=== PATIENT | male | born 1950 | race Caucasian/White ===

== ENCOUNTER 2019-05-02 13:19 | Outpatient (REF) | payer MEDICARE, BC, SELFPAY ==
[2019-05-02 22:03] LABS: Anion Gap 12.1 mmol/L (3-11); BUN 26 mg/dL (7-18); CO2 21.9 mmol/L (21.0-32.0); CREATININE 0.93 mg/dL (0.70-1.30); Calcium 9.3 mg/dL (8.5-10.1); Chloride 108 mmol/L (98-107); Glucose 88 mg/dL (70-100); Potassium 4.5 mmol/L (3.5-5.1); Sodium 142 mmol/L (136-145)
== END 2019-05-02 13:39 ==
LOC: NCHCN 13:19
PROVIDERS: PCP Registered Nurse; Visit Provider Registered Nurse
DX: I10 Essential (primary) hypertension (principal); Z12.11 Encounter for screening for malignant neoplasm of colon
CPT/HCPCS: 80048

== ENCOUNTER 2019-10-24 08:48 | Outpatient (REF) | payer MEDICARE, BC, SELFPAY ==
[2019-10-24 21:33] LABS: Calculated LDL 106 mg/dL; Cholesterol 183 mg/dL (<200); HDL Cholesterol 54 mg/dL (40-60); Triglyceride 117 mg/dL (<150)
== END 2019-10-24 09:08 ==
LOC: NCHCN 08:48
PROVIDERS: PCP Registered Nurse; Visit Provider Registered Nurse
DX: E78.5 Hyperlipidemia, unspecified (principal); I10 Essential (primary) hypertension
CPT/HCPCS: 80061

== ENCOUNTER 2020-07-20 22:57 | Outpatient (REF) | payer MEDICARE, BC, SELFPAY ==
[2020-07-24 15:31] LABS: Patient Race White; SARS-CoV-2 RNA Undetected (Undetected); SARS-CoV-2 Specimen Source Nasopharynx
== END 2020-07-20 23:17 ==
LOC: NCHCN 22:57
PROVIDERS: PCP Registered Nurse; Visit Provider Registered Nurse
DX: Z11.59 Encounter for screening for other viral diseases (principal)
CPT/HCPCS: U0003

== ENCOUNTER 2020-12-20 12:47 | Outpatient (REF) | payer MEDICARE, BC, SELFPAY ==
--- NOTE | 2020-12-20 09:15 | SKI_PTH ---
PATIENT: Reid Mcmillan LOC: [facility] U#:[id number] AGE/SX: 70/M ROOM: RE12/20/[address]: Sydney Leone : 1950 BED: DIS: 12/20/2020 SPEC #: [id number] RECD: 12/20/20 13:08 STATUS: MOSES AVENDANO #: [id number] DARÍO: 12/20/20 09:[address]: Sydney Leone DEPT: Surgical Specimen RECD BY: Delaney Almendarez ENTERED: 12/20/20 13:08 SP TYPE: CRISTINO HERNANDEZ DR: Alysha Little Tissues: 1 - SKIN BIOPSY(SHAVE/PUNCH) Procedures: SKIN LEVEL 4 Comments: [id number]
== END 2020-12-20 12:48 | disposition home or self-care (01) ==
LOC: NCHCN 12:47
PROVIDERS: PCP Registered Nurse; Visit Provider Nurse Practitioner Family
DX: L30.8 Other specified dermatitis (principal)
CPT/HCPCS: 88305

== ENCOUNTER 2021-08-28 12:07 | Outpatient (REF) | payer MEDICARE, BC, SELFPAY ==
[2021-08-28 21:29] LABS: Abs Immature Grans 0.01 10^3/uL (0.0-0.06); Absolute Basophil Count 0.04 10^3/uL (0.0-0.2); Absolute Eosinophil Count 0.17 10^3/uL (0.0-0.7); Absolute Monocyte Count 0.49 10^3/uL (0.1-0.8); Absolute Neutrophil Count 3.21 10^3/uL (1.2-6.7); Basophils % 0.8; Eosinophils % 3.3; HCT 48.1 % (40.0-50.0); HGB 15.6 g/dL (13.5-17.5); Immature Grans % 0.2; Lymphocytes % 23.4; MCH 30.1 pg (27.0-33.0); MCHC 32.4 % (32.0-36.0); MCV 92.9 fL (80-95); MPV 10.9 fL (8.0-11.0); Monocytes % 9.6; Neutrophils % 62.7; Nucleated RBC 0 %; Platelet Count 272 10^3/uL (130-400); RBC 5.18 10^6/uL (4.36-5.78); RDW 13.2 % (11.8-14.1); RDW-SD 45.1 fL; WBC 5.12 10^3/uL (4.4-10.8)
[2021-08-28 21:58] LABS: ALT 37 U/L (16-63); AST 20 U/L (15-37); Albumin 4.4 g/dL (3.4-5.0); Alkaline Phosphatase 80 U/L (46-116); Anion Gap 8.6 mmol/L (3-11); BUN 19 mg/dL (7-18); Bilirubin, Total 0.4 mg/dL (0.2-1.0); CO2 28.4 mmol/L (21.0-32.0); Calcium 10.2 mg/dL (8.5-10.1); Chloride 104 mmol/L (98-107); Glucose 95 mg/dL (74-106); Potassium 4.6 mmol/L (3.5-5.1); Sodium 141 mmol/L (136-145); Total Protein 7.7 g/dL (6.4-8.2)
== END 2021-08-28 12:08 | disposition home or self-care (01) ==
LOC: NCHCN 12:07
PROVIDERS: PCP Registered Nurse; Visit Provider Registered Nurse
DX: I10 Essential (primary) hypertension (principal); E66.9 Obesity, unspecified
CPT/HCPCS: 80053; 85025

== ENCOUNTER 2022-08-27 15:14 | Outpatient (REF) | payer MEDICARE, BC, SELFPAY ==
[2022-08-27 14:20] LABS: Hemoglobin A1C 5.9 % (<5.7)
[2022-08-27 14:23] LABS: Anion Gap 7.1 mmol/L (3-11); BUN 19 mg/dL (7-18); CO2 25.9 mmol/L (21.0-32.0); CREATININE 1.1 mg/dL (0.70-1.30); Calcium 9.5 mg/dL (8.5-10.1); Calculated LDL 110 mg/dL (<100); Chloride 105 mmol/L (98-107); Cholesterol 184 mg/dL (<200); Estimated GFR 72.22 (mL/min/1.73m2); Glucose 107 mg/dL (74-106); HDL Cholesterol 57 mg/dL (40-60); Potassium 4.3 mmol/L (3.5-5.1); Sodium 138 mmol/L (136-145); Triglyceride 86 mg/dL (<150)
== END 2022-08-27 15:15 | disposition home or self-care (01) ==
LOC: NCHCN 15:14
PROVIDERS: PCP Registered Nurse; Visit Provider Registered Nurse
DX: E78.5 Hyperlipidemia, unspecified (principal); I10 Essential (primary) hypertension; R73.03 Prediabetes
CPT/HCPCS: 80048; 80061; 83036

== ENCOUNTER 2023-08-10 12:49 | Outpatient (REF) | payer MEDICARE, BC, SELFPAY ==
[2023-08-10 15:22] LABS: Hemoglobin A1C 5.8 % (<5.7)
[2023-08-10 15:56] LABS: Anion Gap 9.1 mmol/L (3-11); BUN 26 mg/dL (7-18); CO2 26.9 mmol/L (21.0-32.0); CREATININE 1.1 mg/dL (0.70-1.30); Calculated LDL 78 mg/dL (<100); Chloride 103 mmol/L (98-107); Cholesterol 155 mg/dL (<200); Estimated GFR 71.77 (mL/min/1.73m2); Glucose 102 mg/dL (74-106); HDL Cholesterol 57 mg/dL (40-60); Potassium 4.9 mmol/L (3.5-5.1); Sodium 139 mmol/L (136-145); Triglyceride 101 mg/dL (<150)
== END 2023-08-10 12:50 | disposition home or self-care (01) ==
LOC: NCHCN 12:49
PROVIDERS: PCP Registered Nurse; Visit Provider Family Medicine
DX: E66.9 Obesity, unspecified (principal); R73.03 Prediabetes; I10 Essential (primary) hypertension; E78.5 Hyperlipidemia, unspecified
CPT/HCPCS: 80048; 80061; 83036

== ENCOUNTER 2024-04-13 15:27 | Outpatient (REF) | payer MEDICARE, BC, SELFPAY ==
--- NOTE | 2024-04-13 14:30 | SKI_PTH ---
PATIENT: Reid Mcmillan LOC: [facility] U#:[id number] AGE/SX: 74/M ROOM: RE04/13/[address]: Nicho Vargas MD : 1950 BED: DIS: 04/13/2024 SPEC #: [id number] RECD: 04/13/24 18:23 STATUS: MOSES REAnuradha #: [id number] DARÍO: 04/13/24 14:[address]: Nicho Vargas DEPT: Surgical Specimen RECD BY: Delaney Almendarez Tissues: 1 - SKIN BIOPSY(SHAVE/PUNCH) Procedures: SKIN LEVEL 4 Comments: [id number]
== END 2024-04-13 15:28 | disposition home or self-care (01) ==
LOC: LBN 15:27
PROVIDERS: PCP Family Medicine; Visit Provider Otolaryngology
DX: H61.891 Other specified disorders of right external ear (principal)
CPT/HCPCS: 88305

== ENCOUNTER 2025-01-11 10:21 | Outpatient (REF) | payer MEDICARE, BC, SELFPAY ==
[2025-01-11 14:55] LABS: ALT 33 U/L (16-63); AST 21 U/L (15-37); Albumin 4.3 g/dL (3.4-5.0); Alkaline Phosphatase 75 U/L (46-116); Anion Gap 6.7 mmol/L (3-11); BUN 36 mg/dL (7-18); Bilirubin, Total 0.6 mg/dL (0.2-1.0); CO2 27.3 mmol/L (21.0-32.0); CREATININE 1.2 mg/dL (0.70-1.30); Calcium 9.7 mg/dL (8.5-10.1); Calculated LDL 91 mg/dL (<100); Chloride 109 mmol/L (98-107); Cholesterol 165 mg/dL (<200); Estimated GFR 64.25 (mL/min/1.73m2); Glucose 106 mg/dL (74-106); HDL Cholesterol 53 mg/dL (>or=40); Potassium 4.8 mmol/L (3.5-5.1); Sodium 143 mmol/L (136-145); Total Protein 7.6 g/dL (6.4-8.2); Triglyceride 107 mg/dL (<150)
[2025-01-11 15:05] LABS: COMMENT (LAB VIEW ONLY) 237.47 mg/dL; Microalb ug/mg Crea 7.2 ug/mg Cr
== END 2025-01-11 10:22 | disposition home or self-care (01) ==
LOC: NCHCN 10:21
PROVIDERS: PCP Family Medicine; Visit Provider Family Medicine
DX: E78.5 Hyperlipidemia, unspecified (principal); I10 Essential (primary) hypertension; R73.03 Prediabetes
CPT/HCPCS: 80053; 80061; 82043; 82570